=== PATIENT | female | born 1990 | race Caucasian/White ===

== ENCOUNTER 2017-02-12 21:38 | Emergency (ER) | payer OTHER ==
[2017-02-12] MEDS ORDERED: LORazepam 1 MG TAB ONE (21:48)
--- NOTE | 2017-02-12 21:49 | EDPHY ---
HPI/HX/ROS/PE/MDM Narrative: CHIEF COMPLAINT: Seizure HISTORY OF PRESENT ILLNESS: The patient is a 26-year-old female, brought in by EMS from the residential after a witnessed seizure. The patient has a history of seizures, but has not been been taking her with Tegretol and Neurontin for a few months. She has been incarcerated since February 04. She was being treated for alcohol withdrawal seizures through 02/09/17. She was treated for heroin withdrawal through February 11, last dose of Clonidine was February 11. The patient was given Phenergan last night. This evening patient reports a metallic taste in her mouth and felt dizzy prior to the seizure. She recalls being lifted down from the bunk and feeling confused. According to report patient was post- ictal and hypoxic on EMS arrival. She denies numbness or tingling in extremities. Patient complains of diffuse cramping and states her whole body is in pain. No fever, chills, shortness of breath, palpitations, vomiting, diarrhea , or urinary complaints. Patient denies headache. REVIEW OF SYSTEMS: Aside from elements discussed in the HPI, a comprehensive 10-point review of systems was reviewed and is negative. PAST MEDICAL HISTORY: Seizures, Hepatitis C SOCIAL HISTORY: Incarcerated for the past two weeks. Heroin abuse. Alcohol abuse. VITAL SIGNS: Reviewed by me GENERAL: Thin, pale, no respiratory distress. HEENT: Hematoma on right forehead. Eyes: No icterus, no injection. Mouth: slightly dry mucous membranes. Abrasion at right corner of mouth. No erythema or lesions. Neck: supple with no adenopathy. No meningismus. LUNGS: Clear to auscultation bilaterally, no wheezes, rhonchi or rales. CARDIAC: Regular rate and rhythm, no rubs, murmurs or gallops. ABDOMEN: Soft, nontender, nondistended, bowel sounds normal. BACK: No CVA tenderness. EXTREMITIES: No trauma. No edema. Range of motion is normal throughout. Multiple old track russ to both upper and lower extremities. Multiple abscess sites and sites for intramuscular drug injections. NEURO: Alert and oriented x3, able to provide a cohesive history. Denies numbness or tingling. Grossly nonfocal. SKIN: Warm and dry, no rash. PSYCHIATRIC: Normal mentation, no agitation. Portions of this note were transcribed by a biomedical engineering technician. I personally performed a history, physical exam, medical decision making, and confirmed accuracy of information the transcribed note. ED Course: Patient with history of alcohol and heroin abuse, last treated alcohol withdrawal 02/09/17, last treated heroin withdrawal 02/11/17 presents with witnessed seizure at the residential. Patient has not been evaluated here in the past. Plan for CT head and lab work. I will check UA toxicology and alcohol level. Patient is a very difficult IV stick. She received Ativan 2 mg p.o. Lab work is unremarkable. Alcohol level is not elevated. CT head is pending. 10:45 p.m.: I reevaluated the patient, she tells me she was previously on Tegretol 300mg BID and Neurontin 800mg BID. I have written prescriptions for her to restart Tegretol 300 mg twice daily and start Neurontin 300 mg three times daily and increase as tolerated. MDM: Differential diagnosis of the patient's seizure was considered including but not limited to electrolyte abnormality, alcohol withdrawal, medication noncompliance, head injury, meningitis, encephalitis, and breakthrough seizure. - Data Points Imaging Results: Imaging Impressions Head CT 02/12/17 21:56 Impression: Normal. Results called and discussed with Milka Chou MD at 02/12/2017 23:24. Imaging: Discussed imaging studies w/ scallop dredger Radiologist Laboratory Results: Laboratory Results 02/12/17 22:00 02/12/17 22:00 02/12/17 02/12/17 02/12/17 23:00 22:00 22:00 WBC RBC Hgb Hct MCV MCH MCHC RDW Plt Count MPV Neut % (Auto) Lymph % (Auto) [place] % (Auto) Eos % (Auto) Baso % (Auto) Nucleat RBC Rel Count Absolute Neuts (auto) Absolute Lymphs (auto) Absolute Monos (auto) Absolute Eos (auto) Absolute Basos (auto) Absolute Nucleated RBC Immature Gran % Immature Gran # Sodium 140 mEq/L mEq/L (134-144) Potassium 4.4 mEq/L mEq/L (3.5-5.2) Chloride 103 mEq/L mEq/L (97-110) Carbon Dioxide 22 mEq/l mEq/l (22-31) Anion Gap 15 mEq/L mEq/L (8-16) BUN 19 mg/dL mg/dL (7-23) Creatinine 0.9 mg/dL mg/dL (0.6-1.0) Estimated GFR > 60 Glucose 98 mg/dL mg/dL (70-100) Calcium 10.6 mg/dL H mg/dL (8.5-10.4) Lipase 72.0 IU/L IU/L (23-300) Beta HCG, Qual NEGATIVE Urine Opiates Screen NEGATIVE (NEGATIVE) Urine Barbiturates NEGATIVE (NEGATIVE) Ur Phencyclidine Scrn NEGATIVE (NEGATIVE) Ur Amphetamine Screen NEGATIVE (NEGATIVE) U Benzodiazepines Scrn NON-NEGATIVE H (NEGATIVE) Urine Cocaine Screen NEGATIVE (NEGATIVE) U Marijuana (THC) Screen NEGATIVE (NEGATIVE) Ethyl Alcohol < 10 mg/dL mg/dL (0-10) 02/12/17 22:00 WBC 9.18 10^3/uL 10^3/uL (3.80-9.50) RBC 4.87 10^6/uL 10^6/uL (4.18-5.33) Hgb 12.4 g/dL L g/dL (12.6-16.3) Hct 39.3 % % (38.0-47.0) MCV 80.7 fL L fL (81.5-99.8) MCH 25.5 pg L pg (27.9-34.1) MCHC 31.6 g/dL L g/dL (32.4-36.7) RDW 15.8 % H % (11.5-15.2) Plt Count 479 10^3/uL H 10^3/uL (150-400) MPV 9.2 fL fL (8.7-11.7) Neut % (Auto) 67.8 % % (39.3-74.2) Lymph % (Auto) 25.6 % % (15.0-45.0) [place] % (Auto) 5.4 % % (4.5-13.0) Eos % (Auto) 0.2 % L % (0.6-7.6) Baso % (Auto) 0.7 % % (0.3-1.7) Nucleat RBC Rel Count 0.0 % % (0.0-0.2) Absolute Neuts (auto) 6.22 10^3/uL 10^3/uL (1.70-6.50) Absolute Lymphs (auto) 2.35 10^3/uL 10^3/uL (1.00-3.00) Absolute Monos (auto) 0.50 10^3/uL 10^3/uL (0.30-0.80) Absolute Eos (auto) 0.02 10^3/uL L 10^3/uL (0.03-0.40) Absolute Basos (auto) 0.06 10^3/uL 10^3/uL (0.02-0.10) Absolute Nucleated RBC 0.00 10^3/uL 10^3/uL (0-0.01) Immature Gran % 0.3 % % (0.0-1.1) Immature Gran # 0.03 10^3/uL 10^3/uL (0.00-0.10) Sodium Potassium Chloride Carbon Dioxide Anion Gap BUN Creatinine Estimated GFR Glucose Calcium Lipase Beta HCG, Qual Urine Opiates Screen Urine Barbiturates Ur Phencyclidine Scrn Ur Amphetamine Screen U Benzodiazepines Scrn Urine Cocaine Screen U Marijuana (THC) Screen Ethyl Alcohol Medications Given: Discontinued Medications Acetaminophen (Tylenol) 1,000 mg PO EDNOW ONE Stop: 02/12/17 22:53 Last Admin: 02/12/17 23:10 Dose: 1,000 mg Lorazepam (Ativan) 2 mg PO EDNOW ONE Stop: 02/12/17 22:24 Last Admin: 02/12/17 21:40 Dose: 2 mg Ondansetron HCl (Zofran Odt) 4 mg PO EDNOW ONE Stop: 02/12/17 22:52 Last Admin: 02/12/17 22:57 Dose: 4 mg General Initial Vital Signs: Initial Vital Signs Temperature (C) 36.7 C 02/12/17 21:40 Heart Rate 55 L 02/12/17 21:40 Respiratory Rate 16 02/12/17 21:40 Blood Pressure 99/61 L 02/12/17 21:40 O2 Sat (%) 97 02/12/17 21:40 O2 Delivery Mode Room Air Allergies/Adverse Reactions: acetaminophen [From Vicodin] Allergy (Verified 02/12/17 22:05) hydrocodone [From Vicodin] Allergy (Verified 02/12/17 22:05) paroxetine [From Paxil] Allergy (Verified 02/12/17 22:05) Home Medications: Medication Instructions Recorded Gabapentin [Neurontin 300 MG (*)] 300 mg PO TID #45 cap 02/12/17 carBAMazepine [Tegretol (RX)] 400 mg PO BID #30 tab 02/12/17 Departure - Departure Disposition: Home, Routine, Self-Care Clinical Impression: Seizure Condition: Good Instructions: Epilepsy (ED) Additional Instructions: Please take Tegretol twice daily as directed. It is recommended that Neurontin is started at 300mg twice daily. Please take this as directed and followup with your physician for further recommendation on doses. You have been referred to a primary care physician below, please arrange a followup appointment in regards to your recent seizure. Return to the Emergency Department with new or recurrent symptoms. Referrals: Ladan Crowder MD [Medical Doctor] - As per Instructions Prescriptions: carBAMazepine [Tegretol (RX)] 400 mg PO BID #30 tab Gabapentin [Neurontin 300 MG (*)] 300 mg PO TID #45 cap Report Scribed for: Milka Chou Report Scribed by: Anuradha Willett Date of Report: 02/12/17 Time of Report: 22:01
[2017-02-12 22:09] LABS: % IMMATURE GRANULYOCYTES 0.3 % (0.0-1.1); ABSOLUTE IMMATURE GRANULOCYTES 0.03 10^3/uL (0.00-0.10); ADD DIFF? NO; ADD MORPH? NO; ADD SCAN? NO; ATYPICAL LYMPHOCYTE FLAG 20 (0-99); FRAGMENT RBC FLAG 0 (0-99); HEMATOCRIT 39.3 % (38.0-47.0); HEMOGLOBIN 12.4 g/dL (12.6-16.3); LEFT SHIFT FLG 0 (0-99); LIPEMIA HEMOLYSIS FLAG 80 (0-99); MEAN CELL HEMOGLOBIN 25.5 pg (27.9-34.1); MEAN CELL HEMOGLOBIN CONCENTR. 31.6 g/dL (32.4-36.7); MEAN CELL VOLUME 80.7 fL (81.5-99.8); MEAN PLATELET VOLUME 9.2 fL (8.7-11.7); PLATELET CLUMPS FLAG 0 (0-99); PLATELET COUNT 479 10^3/uL (150-400); RED BLOOD CELL COUNT 4.87 10^6/uL (4.18-5.33); RED CELL DISTRIBUTION WIDTH 15.8 % (11.5-15.2)
[2017-02-12 22:20] VITALS: RESP 16; TEMP 98.1
[2017-02-12] MEDS ORDERED: LORazepam 1 MG TAB PO ONE (22:23)
[2017-02-12 22:32] LABS: ANION GAP 15 mEq/L (8-16); CALCIUM 10.6 mg/dL (8.5-10.4); CARBON DIOXIDE 22 mEq/l (22-31); CHLORIDE 103 mEq/L (97-110); CREATININE 0.9 mg/dL (0.6-1.0); ETHANOL SERUM < 10 mg/dL (0-10); GLOMERULAR FILTRATION RATE > 60; GLUCOSE 98 mg/dL (70-100); POTASSIUM 4.4 mEq/L (3.5-5.2); SODIUM 140 mEq/L (134-144)
[2017-02-12] MEDS ORDERED: ONDANSETRON DISINTEGRATING 4 MG TAB PO ONE (22:51)
[2017-02-12] MEDS ORDERED: ACETAMINOPHEN 500 MG TAB PO ONE (22:52)
[2017-02-12] MEDS ORDERED: ONDANSETRON DISINTEGRATING 4 MG TAB ONE (22:56)
[2017-02-12] MEDS ORDERED: ACETAMINOPHEN 500 MG TAB ONE (22:56)
[2017-02-12] MEDS ORDERED: carBAMazepine 200 MG TAB PO ONE (23:35)
[2017-02-12] MEDS ORDERED: KETOROLAC 15 MG/1 ML SDV IVP ONE (23:46)
[2017-02-13 00:13] VITALS: BP 117/74; PULSE 65; O2SAT 97
== END 2017-02-13 00:13 | disposition home or self-care (01) ==
DX: G40.909 Epilepsy, unspecified, not intractable, without status epilepticus (principal)
CPT/HCPCS: 80305; G0480; J1885